=== PATIENT | female | born 1995 | race Caucasian/White ===

== ENCOUNTER 2017-03-02 12:57 | Emergency (ER) | payer BC, MEDICAID ==
--- NOTE | 2017-03-02 13:47 | EDM.PDOC ---
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 She states that she saw Dr. Alvarenga about 2 weeks ago, and that an ultrasound was performed, demonstrating a left ovarian cyst. The patient now presents because the pain has gotten worse over the past 2 days. The pain is made better with application of heat. No recent fever, nausea, vomiting, constipation, or diarrhea. She denies dysuria and urinary urgency, but acknowledges urinary frequency. She states that she has been feeling shaky and cold. She denies trying any home treatments or remedies. She is Ab1. LMP was 02/23/2017 x 5 days, normal. Bilateral Lower Anterior Abdominal Pain Score (Numeric/FACES): 8 - Related Data Allergies Allergy/AdvReac Type Severity Reaction Status Date / Time No Known Allergies Allergy Verified 03/02/17 13:06 Home Meds: Home Meds Norgestimate-Ethinyl Estradiol [Trinessa Lo Tablet] 1 tab PO DAILY 03/02/17 [ History] Past Medical History - Past Surgical History Female Surgical History: Reports: Breast Implant (bilateral), Section (x 1) Social & Family History - Tobacco Use Smoking Status *Q: Never Smoker Second Hand Smoke Exposure: No - Caffeine Use Caffeine Use: Reports: Soda - Alcohol Use Alcohol Use History: Yes Alcohol Use Frequency: Rarely - Recreational Drug Use Recreational Drug Use: No - Living Situation & Occupation Living situation: Reports: (getting ), with Family (1 child) 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 Denies: Dysuria, Urgency Musculoskeletal: Reports: No Symptoms Skin: Reports: No Symptoms Neurological: Reports: No Symptoms Psychiatric: Reports: No Symptoms Hematologic/Lymphatic: Reports: No Symptoms Immunologic: Reports: No Symptoms ED EXAM, GENERAL - Physical Exam Exam: See Below Exam Limited By: No Limitations General Appearance: Alert, WD/WN, No Apparent Distress Ears: Normal External Exam, Hearing Grossly Normal Nose: Normal Inspection, No Blood Throat/Mouth: Normal Inspection, Normal Lips, Normal Voice, No Airway Compromise Head: Atraumatic, Normocephalic Neck: Normal Inspection, Full Range of Motion Respiratory/Chest: No Respiratory Distress, Lungs Clear, Normal Breath Sounds, No Accessory Muscle Use Cardiovascular: Normal Peripheral Pulses, Regular Rate, Rhythm, No Gallop, No JVD, No Murmur, No Rub Peripheral Pulses: 4+: Radial (L), Radial (R) GI/Abdominal: Normal Bowel Sounds, Soft, No Organomegaly, No Distention, No Abnormal Bruit, No Mass, Tender (Suprapubic and bilateral anterior pelvis only. Nontender elsewhere.) (Female) Exam: Deferred Rectal (Female) Exam: Deferred Back Exam: Normal Inspection, Full Range of Motion. No: CVA Tenderness (L), CVA Tenderness (R) Extremities: Normal Inspection, Normal Range of Motion, No Pedal Edema, Normal Capillary Refill Neurological: Alert, Oriented, Normal Cognition, No Motor/Sensory Deficits Psychiatric: Normal Affect Skin Exam: Warm, Dry, Intact, Normal Color, No Rash Course - Vital Signs Last Recorded V/S: Last Vital Signs Temp 36.3 C 03/02/17 13:06 Pulse 69 03/02/17 13:06 Resp 16 03/02/17 13:06 BP 116/78 03/02/17 13:06 Pulse Ox 100 03/02/17 13:06 - Orders/Labs/Meds Labs: Laboratory Tests 03/02/17 03/02/17 03/02/17 Range/Units 13:55 13:55 13:55 WBC 5.47 (3.98-10.04) K/mm3 RBC 4.70 (3.98-5.22) M/mm3 Hgb 13.2 (11.2-15.7) gm/L Hct 40.8 (34.1-44.9) % MCV 86.8 (79.4-94.8) fl MCH 28.1 (25.6-32.2) pg MCHC 32.4 (32.2-35.5) g/dl RDW Std Deviation 41.3 (36.4-46.3) fL Plt Count 290 (182-369) K/mm3 MPV 10.1 (9.4-12.3) fl Neutrophils % (Manual) 50 (40-60) % Band Neutrophils % 0 (0-10) % Lymphocytes % (Manual) 44 H (20-40) % Atypical Lymphs % 0 % Monocytes % (Manual) 5 (2-10) % Eosinophils % (Manual) 1 (0.7-5.8) % Basophils % (Manual) 0 L (0.1-1.2) Platelet Estimate Adequate RBC Morph Comment Normal Sodium (136-145) mEq/L Potassium (3.5-5.1) mEq/L Chloride (98-107) mEq/L Carbon Dioxide (21-32) mEq/L Anion Gap (5-15) BUN (7-18) mg/dL Creatinine (0.55-1.02) mg/dL Est Cr Clr Drug Dosing mL/min Estimated GFR (MDRD) (>60) mL/min BUN/Creatinine Ratio (14-18) Glucose (74-106) mg/dL Calcium (8.5-10.1) mg/dL Total Bilirubin (0.2-1.0) mg/dL AST (15-37) U/L ALT (14-59) U/L Alkaline Phosphatase (46-116) U/L Total Protein (6.4-8.2) g/dl Albumin (3.4-5.0) g/dl Globulin gm/dL Albumin/Globulin Ratio (1-2) Urine Color Yellow (Yellow) Urine Appearance Clear (Clear) Urine pH 5.5 (5.0-8.0) Ur Specific [place] 1.025 (1.005-1.030) Urine Protein Negative (Negative) Urine Glucose (UA) Negative (Negative) Urine Ketones Negative (Negative) Urine Occult Blood Negative (Negative) Urine Nitrite Negative (Negative) Urine Bilirubin Negative (Negative) Urine Urobilinogen 0.2 (0.2-1.0) Ur Leukocyte Esterase Negative (Negative) Urine RBC Not seen (0-5) /hpf Urine WBC 0-5 (0-5) /hpf Ur Epithelial Cells 5-10 H (0-5) /hpf Urine Bacteria Few (FEW) /hpf Urine Mucus Many H (FEW) /hpf Urine HCG, Qual Negative (NEGATIVE) 03/02/17 Range/Units 14:05 WBC (3.98-10.04) K/mm3 RBC (3.98-5.22) M/mm3 Hgb (11.2-15.7) gm/L Hct (34.1-44.9) % MCV (79.4-94.8) fl MCH (25.6-32.2) pg MCHC (32.2-35.5) g/dl RDW Std Deviation (36.4-46.3) fL Plt Count (182-369) K/mm3 MPV (9.4-12.3) fl Neutrophils % (Manual) (40-60) % Band Neutrophils % (0-10) % Lymphocytes % (Manual) (20-40) % Atypical Lymphs % % Monocytes % (Manual) (2-10) % Eosinophils % (Manual) (0.7-5.8) % Basophils % (Manual) (0.1-1.2) Platelet Estimate RBC Morph Comment Sodium 141 (136-145) mEq/L Potassium 4.1 (3.5-5.1) mEq/L Chloride 107 (98-107) mEq/L Carbon Dioxide 26 (21-32) mEq/L Anion Gap 12.1 (5-15) BUN 13 (7-18) mg/dL Creatinine 0.9 (0.55-1.02) mg/dL Est Cr Clr Drug Dosing 106.20 mL/min Estimated GFR (MDRD) > 60 (>60) mL/min BUN/Creatinine Ratio 14.4 (14-18) Glucose 94 (74-106) mg/dL Calcium 9.1 (8.5-10.1) mg/dL Total Bilirubin 0.3 (0.2-1.0) mg/dL AST 77 H (15-37) U/L ALT 51 (14-59) U/L Alkaline Phosphatase 53 (46-116) U/L Total Protein 7.4 (6.4-8.2) g/dl Albumin 3.7 (3.4-5.0) g/dl Globulin 3.7 gm/dL Albumin/Globulin Ratio 1.0 (1-2) Urine Color (Yellow) Urine Appearance (Clear) Urine pH (5.0-8.0) Ur Specific [place] (1.005-1.030) Urine Protein (Negative) Urine Glucose (UA) (Negative) Urine Ketones (Negative) Urine Occult Blood (Negative) Urine Nitrite (Negative) Urine Bilirubin (Negative) Urine Urobilinogen (0.2-1.0) Ur Leukocyte Esterase (Negative) Urine RBC (0-5) /hpf Urine WBC (0-5) /hpf Ur Epithelial Cells (0-5) /hpf Urine Bacteria (FEW) /hpf Urine Mucus (FEW) /hpf Urine HCG, Qual (NEGATIVE) - Re-Assessments/Exams Free Text/Narrative Re-Assessment/Exam: 03/02/17 15:00 The patient's urinalysis is consistent with an examination, not a UTI. 03/02/17 16:10 Transvaginal ultrasound is read by Dr. Robins as: 1. Normal pelvic ultrasound exam. 03/02/17 16:15 Test results discussed with the patient. Today's workup is entirely normal, and does not explain the cause of the patient's pain. The ultrasound does not find that she has an ovarian cyst, nor any blood in the pelvis. I am recommending that she take fwiz-qkx-dvxydki Tylenol or ibuprofen as needed for discomfort, and I will refer her to Dr. Cavazos for follow-up. Departure - Departure Time of Disposition: 16:16 Disposition: Home, Self-Care 01 Condition: Good Clinical Impression: Pelvic pain - Discharge Information Referrals: PCP,None [Primary Care Provider] - Darion Cavazos MD [Physician] - Forms: ED Department Discharge Additional Instructions: You were seen in the emergency room for worsening pelvic pain over the past month. Workup in the ER included a CBC, CMP, urinalysis, urine test, and a transvaginal ultrasound. Your entire workup was unremarkable, and does not explain the cause of your pain. We recommend that you take kgfw-vkm-ieoqkva Tylenol or ibuprofen as needed for discomfort. Follow-up with the Arabic Linguist Dr. Cavazos for further evaluation. If any other problems, please do not hesitate to return to the ER.
--- NOTE | 2017-03-02 16:07 | US ---
Pelvic ultrasound: Multiple real-time images were obtained transvaginally. Comparison: No previous pelvic ultrasound. Findings: Uterus is anteverted. No myometrial abnormality is identified. Normal endometrial thickness of 4.5 mm. Normal follicles are seen within the ovaries. No larger cyst or solid abnormality is seen. No free fluid is seen. Measurements: Uterus: Length 7.6 cm, AP height 2.7 cm, transverse width 5.3 cm Right ovary: 3.5 x 2.2 x 2.5 cm Left ovary: 2.9 x 1.8 x 2.1 cm Impression: 1. Normal pelvic ultrasound exam. Diagnostic code #1
== END 2017-03-02 16:35 | disposition home or self-care (01) ==
LOC: JD.ED 12:57
DX: R10.2 Pelvic and perineal pain (principal); Z79.899 Other long term (current) drug therapy
CPT/HCPCS: 36415; 76830; 76830-26; 80053; 81001; 81025; 85025; 99283; 99284-25

== ENCOUNTER 2018-09-07 11:42 | Inpatient (IN) | payer MEDICAID ==
[2018-09-07] MEDS ORDERED: Nalbuphine 20 MG/ML 1 ML Syringe IVPUSH PRN (11:55)
[2018-09-07] MEDS ORDERED: Sodium Chloride 0.9% 10 ML Syringe FLUSH PRN (11:55)
[2018-09-07] MEDS ORDERED: Ondansetron 4 MG/2 ML SDV IVPUSH PRN (11:55)
[2018-09-07] MEDS ORDERED: Oxytocin/Lactated Ringers 10 UNIT/1,000 ML BAG IV SCH (12:00)
[2018-09-07] MEDS ORDERED: Penicillin G Potassium 5 MILLUNITS in Sodium Chloride 0.9% 100 ML IV SCH (12:30)
[2018-09-07] MEDS: Oxytocin/Lactated Ringers 10 UNIT/1,000 ML BAG IV SCH (12:35)
[2018-09-07] MEDS: Lactated Ringers 1,000 ML IV SCH ×2 (12:44→16:25)
[2018-09-07] MEDS ORDERED: fentaNYL/Bupivacaine-NS 2 MCG/ML-0.125%/PF 100 ML Bag EPIDUR PRN (13:04)
[2018-09-07] MEDS ORDERED: ePHEDrine 50 MG/ML SDV IVPUSH PRN (13:04)
[2018-09-07] MEDS ORDERED: diphenhydrAMINE 50 MG/ML SDV IVPUSH PRN (13:04)
[2018-09-07] MEDS ORDERED: fentaNYL 100 MCG/2 ML SDV EPIDUR PRN (13:04)
--- NOTE | 2018-09-07 13:10 | PCM.PREANE ---
Preanesthetic Assessment - Procedure Proposed Procedure: lyle - Anesthesia/Transfusion/Family Hx Anesthesia History: Prior Anesthesia Without Reaction Family History of Anesthesia Reaction: No Transfusion History: No Prior Transfusion(s) - Review of Systems General: No Symptoms Pulmonary: No Symptoms Cardiovascular: No Symptoms Gastrointestinal: No Symptoms Neurological: No Symptoms Other: Reports: None - Physical Assessment Pulse: 85 O2 Sat by Pulse Oximetry: 99 Respiratory Rate: 20 Blood Pressure: 128/87 Height: 6 ft Weight: 87.634 kg ASA Class: 2 Mental Status: Alert & Oriented x3 Airway Class: Mallampati = 1 Dentition: Reports: Normal Dentition Thyro-Mental Finger Breadths: 3 Mouth Opening Finger Breadths: 3 ROM/Head Extension: Full Lungs: Clear to Auscultation, Normal Respiratory Effort Cardiovascular: Regular Rate, Regular Rhythm - Lab Values: Laboratory Last Values WBC 10.45 K/mm3 (3.98-10.04) H 09/07/18 12:32 RBC 4.44 M/mm3 (3.98-5.22) 09/07/18 12:32 Hgb 12.3 gm/L (11.2-15.7) 09/07/18 12:32 Hct 37.7 % (34.1-44.9) 09/07/18 12:32 MCV 84.9 fl (79.4-94.8) D 09/07/18 12:32 MCH 27.7 pg (25.6-32.2) 09/07/18 12:32 MCHC 32.6 g/dl (32.2-35.5) 09/07/18 12:32 RDW Std Deviation 43.1 fL (36.4-46.3) 09/07/18 12:32 Plt Count 124 K/mm3 (182-369) L D 09/07/18 12:32 MPV 12.9 fl (9.4-12.3) H 09/07/18 12:32 Neut % (Auto) 70.9 % (34.0-71.1) 09/07/18 12:32 Lymph % (Auto) 19.3 % (19.3-51.7) 09/07/18 12:32 [place] % (Auto) 8.5 % (4.7-12.5) 09/07/18 12:32 Eos % (Auto) 0.8 (0.7-5.8) 09/07/18 12:32 Baso % (Auto) 0.2 % (0.1-1.2) 09/07/18 12:32 Neut # (Auto) 7.41 K/mm3 (1.56-6.13) H 09/07/18 12:32 Lymph # (Auto) 2.02 K/mm3 (1.18-3.74) 09/07/18 12:32 [place] # (Auto) 0.89 K/mm3 (0.24-0.36) H 09/07/18 12:32 Eos # (Auto) 0.08 K/mm3 (0.04-0.36) 09/07/18 12:32 Baso # (Auto) 0.02 K/mm3 (0.01-0.08) 09/07/18 12:32 - Allergies Allergies/Adverse Reactions: Allergies Allergy/AdvReac Type Severity Reaction Status Date / Time No Known Allergies Allergy Verified 09/07/18 12:03 - Blood Blood Available: No - Acknowledgements Anesthesia Type Planned: Epidural Pt an Appropriate Candidate for the Planned Anesthesia: Yes Alternatives and Risks of Anesthesia Discussed w Pt/Guardian: Yes Pt/Guardian Understands and Agrees with Anesthesia Plan: Yes PreAnesthesia Questionnaire HEENT History: Reports: None Cardiovascular History: Reports: None Respiratory History: Reports: None Gastrointestinal History: Reports: GERD (with preg) : 2 (40 1) Para: 1 Musculoskeletal History: Reports: None Psychiatric History: Reports: None Oncologic (Cancer) History: Reports: None - Past Surgical History Female Surgical History: Reports: Breast Implant (bilateral), Section (x 1) - History Comment History Comment: vits for home meds - SUBSTANCE USE Smoking Status *Q: Never Smoker Tobacco Use Within Last Twelve Months: No Second Hand Smoke Exposure: No Days Per Week of Alcohol Use: 0 Recreational Drug Use History: No - HOME MEDS Home Medications: Home Meds Norgestimate-Ethinyl Estradiol [Trinessa Lo Tablet] 1 tab PO DAILY 03/02/17 [ History] - CURRENT (IN HOUSE) MEDS Current Meds: Current Medications Lactated Ringer's (Ringers, Lactated) 1,000 mls @ 100 mls/hr IV ASDIRECTED RANJIT Last Admin: 09/07/18 12:44 Dose: 100 mls/hr Oxytocin/Lactated Ringer's (Pitocin In Lr 10 Units/1,000 Ml) 10 unit in 1,000 mls @ 500 mls/hr IV .CONTINUOUS RANJIT Penicillin G Potassium 5 (millunits/ Sodium Chloride) 100 mls @ 100 mls/hr IV ONETIME RANJIT Stop: 09/07/18 14:30 Last Admin: 09/07/18 12:44 Dose: 100 mls/hr Penicillin G Potassium 2.5 (millunits/ Sodium Chloride) 100 mls @ 200 mls/hr IV Q4H RANJIT Oxytocin/Lactated Ringer's (Pitocin In Lr 10 Units/1,000 Ml) 10 unit in 1,000 mls @ 12 mls/hr IV TITRATE RANJIT; Protocol Last Admin: 09/07/18 12:35 Dose: 2 munits/min, 12 mls/hr Lidocaine HCl (Xylocaine 1%) 50 ml INJECT ASDIRECTED ONE Stop: 09/07/18 18:01 Nalbuphine HCl (Nubain) 10 mg IVPUSH Q2H PRN PRN Reason: pain Ondansetron HCl (Zofran) 4 mg IVPUSH Q4H PRN PRN Reason: Nausea/Vomiting Sodium Chloride (Saline Flush) 10 ml FLUSH ASDIRECTED PRN PRN Reason: Keep Vein Open
--- NOTE | 2018-09-07 13:41 | PCM.LDHP ---
L&D History of Present Illness - General Date of Service: 09/07/18 Admit Problem/Dx: Patient Status Order with Admit Dx/Problem 09/07/18 11:56 Patient Status [ADT] Routine Admission Diagnosis/Problem Admission Diagnosis/Problem Source of Information: Patient History Limitations: Reports: No Limitations - History of Present Illness Introduction:: Patient is a 23 y/o at 40 1/7 wks who presents for elective IOL. Patient's last notable for suspected IUGR and IOL at 37 weeks. Required for concerns of NRFS. Has been doing well this with appropriate growth noted. Has been requesting IOL due to concerns for delaying further and potentially failing to achieve . She is otherwise doing well today. Notes good FM. 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: : 2 Para: 1 LMP (Approximate): - Past Surgical History Female Surgical History: Reports: Breast Implant (bilateral), Section Social & Family History - Tobacco Use Smoking Status *Q: Never Smoker Second Hand Smoke Exposure: No - Caffeine Use Caffeine Use: Reports: Soda - Alcohol Use Alcohol Use History: No Days Per Week of Alcohol Use: 0 - Recreational Drug Use Recreational Drug Use: No - Living Situation & Occupation Living situation: Reports: (getting ), with Family (1 child) 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) H&P Review of Systems - Review of Systems: Review Of Systems: See Below General: Reports: No Symptoms Pulmonary: Reports: No Symptoms Cardiovascular: Reports: No Symptoms Gastrointestinal: Reports: No Symptoms Genitourinary: Reports: No Symptoms Musculoskeletal: Reports: No Symptoms Psychiatric: Reports: No Symptoms L&D Exam - Exam Exam: See Below - Vital Signs Vital Signs: Last Vital Signs Temp 36.6 C 09/07/18 12:10 Pulse 85 09/07/18 13:10 Resp 20 09/07/18 13:10 BP 128/87 09/07/18 13:10 Pulse Ox 99 09/07/18 13:10 Weight: 87.634 kg - OB Specific Contraction Intensity: Irritability Movement: Active Heart Tones: Present Heart Tones per Min: 140 Heart Rate (FHR) Variability: Moderate (6-25 bmp) Presentation: Vertex - Cruz Score Cruz Score Cervix Position: Posterior Cruz Score Consistency: Medium Cruz Score Effacement: 31-50% Cruz Score Dilation: 1-2 cm Cruz Score 's Station: -1 ,0 Cruz Score Total: 5 - Exam General: Alert, Oriented, Cooperative Lungs: Clear to Auscultation, Normal Respiratory Effort Cardiovascular: Regular Rate, Regular Rhythm GI/Abdominal Exam: Soft, Non-Tender Genitourinary: Normal external exam Extremities: Normal Inspection Skin: Warm, Dry, Intact - Patient Data Lab Results Last 24 hrs: Laboratory Results - last 24 hr 09/07/18 09/07/18 Range/Units 12:32 12:32 WBC 10.45 H (3.98-10.04) K/mm3 RBC 4.44 (3.98-5.22) M/mm3 Hgb 12.3 (11.2-15.7) gm/L Hct 37.7 (34.1-44.9) % MCV 84.9 D (79.4-94.8) fl MCH 27.7 (25.6-32.2) pg MCHC 32.6 (32.2-35.5) g/dl RDW Std Deviation 43.1 (36.4-46.3) fL Plt Count 124 L D (182-369) K/mm3 MPV 12.9 H (9.4-12.3) fl Neut % (Auto) 70.9 (34.0-71.1) % Lymph % (Auto) 19.3 (19.3-51.7) % [place] % (Auto) 8.5 (4.7-12.5) % Eos % (Auto) 0.8 (0.7-5.8) Baso % (Auto) 0.2 (0.1-1.2) % Neut # (Auto) 7.41 H (1.56-6.13) K/mm3 Lymph # (Auto) 2.02 (1.18-3.74) K/mm3 [place] # (Auto) 0.89 H (0.24-0.36) K/mm3 Eos # (Auto) 0.08 (0.04-0.36) K/mm3 Baso # (Auto) 0.02 (0.01-0.08) K/mm3 Blood Type O POSITIVE Gel Antibody Screen Negative Result Diagrams: 09/07/18 12:32 - Problem List (1) Postmaturity , 40-42 weeks gestation SNOMED Code(s): 63012547, 364918409 ICD Code: O48.0 - POST-TERM Status: Acute Current Visit: Yes (2) GBS carrier SNOMED Code(s): 4175701944720 ICD Code: Z22.330 - CARRIER OF GROUP B STREPTOCOCCUS Status: Acute Current Visit: Yes (3) History of SNOMED Code(s): 806471477 ICD Code: Z98.891 - HISTORY OF UTERINE SCAR FROM PREVIOUS SURGERY Status: Acute Current Visit: Yes Problem List Initiated/Reviewed/Updated: Yes Orders Last 24hrs: Active Orders 24 hr Category Date Time Status Patient Status [ADT] Routine ADT 09/07/18 11:56 Active Activity as Tolerated [RC] PFP Care 09/07/18 11:56 Active Communication Order [RC] ASDIRECTED Care 09/07/18 11:56 Active Heart Tones [RC] ASDIRECTED Care 09/07/18 11:57 Active Non Stress Test [RC] PER UNIT ROUTINE Care 09/07/18 11:56 Active Notify Provider [RC] ASDIRECTED Care 09/07/18 13:04 Active Notify Provider [RC] PFP Care 09/07/18 11:56 Active Notify Provider [RC] PRN Care 09/07/18 11:56 Active Peripheral IV Care [RC] . DIRECTED Care 09/07/18 11:57 Active Vital Signs [RC] PER UNIT ROUTINE Care 09/07/18 11:56 Active Regular Diet [DIET] Diet 09/07/18 Lunch Active RAPID PLASMA REAGIN,RPR [CHEM] Routine Lab 09/07/18 12:32 Received Lactated Ringers [Ringers, Lactated] 1,000 ml Med 09/07/18 12:00 Active IV ASDIRECTED Lidocaine 1% [Xylocaine 1%] Med 09/07/18 18:00 Once 50 ml INJECT ASDIRECTED ONE Nalbuphine [Nubain] Med 09/07/18 11:55 Active 10 mg IVPUSH Q2H PRN Ondansetron [Zofran] Med 09/07/18 11:55 Active 4 mg IVPUSH Q4H PRN Oxytocin/Lactated Ringers [Pitocin in LR 10 Units/1,000 Med 09/07/18 12:00 Active ML] 10 unit in 1,000 ml IV .CONTINUOUS Oxytocin/Lactated Ringers [Pitocin in LR 10 Units/1,000 Med 09/07/18 12:15 Active ML] 10 unit in 1,000 ml IV TITRATE Penicillin G Potassium [Pfizerpen] 2.5 millunits Med 09/07/18 16:30 Active Sodium Chloride 0.9% [Normal Saline] 100 ml IV Q4H Penicillin G Potassium [Pfizerpen] 5 millunits Med 09/07/18 12:30 Active Sodium Chloride 0.9% [Normal Saline] 100 ml IV ONETIME Sodium Chloride 0.9% [Saline Flush] Med 09/07/18 11:55 Active 10 ml FLUSH ASDIRECTED PRN diphenhydrAMINE [Benadryl] Med 09/07/18 13:04 Active 25 mg IVPUSH Q6H PRN ePHEDrine [ePHEDrine sulfate] Med 09/07/18 13:04 Active 5 mg IVPUSH ASDIRECTED PRN fentaNYL [Sublimaze] Med 09/07/18 13:04 Active 100 mcg EPIDUR Q3H PRN fentaNYL/Bupivacaine/NS/PF [dpwnxFBR-Rghux-QT 2 MCG/ML- Med 09/07/18 13:04 Active 0.125%] 100 ml EPIDUR ONETIME PRN Electronic Heart Tones Ext w TOCO [WOMSER] Oth 09/07/18 11:56 Ordered Routine Electronic Heart Tones Internal [WOMSER] Per Unit Oth 09/07/18 11:56 Ordered Routine Peripheral IV Insertion Adult [OM.PC] Routine Oth 09/07/18 11:56 Ordered Resuscitation Status Routine Resus Stat 09/07/18 11:55 Ordered Medication Orders Diphenhydramine HCl (Benadryl) 25 mg IVPUSH Q6H PRN PRN Reason: pruritis Ephedrine Sulfate (Ephedrine Sulfate) 5 mg IVPUSH ASDIRECTED PRN PRN Reason: Hypotension Fentanyl (Sublimaze) 100 mcg EPIDUR Q3H PRN PRN Reason: Pain Fentanyl/Bupivacaine HCl (Wxqgzkko-Znfgj-Cp 2 Mcg/Ml-0.125%) 100 ml EPIDUR ONETIME PRN PRN Reason: Pain Lactated Ringer's (Ringers, Lactated) 1,000 mls @ 100 mls/hr IV ASDIRECTED RANJIT Last Admin: 09/07/18 12:44 Dose: 100 mls/hr Oxytocin/Lactated Ringer's (Pitocin In Lr 10 Units/1,000 Ml) 10 unit in 1,000 mls @ 500 mls/hr IV .CONTINUOUS RANJIT Penicillin G Potassium 5 (millunits/ Sodium Chloride) 100 mls @ 100 mls/hr IV ONETIME RANJIT Stop: 09/07/18 14:30 Last Admin: 09/07/18 12:44 Dose: 100 mls/hr Penicillin G Potassium 2.5 (millunits/ Sodium Chloride) 100 mls @ 200 mls/hr IV Q4H RANJIT Oxytocin/Lactated Ringer's (Pitocin In Lr 10 Units/1,000 Ml) 10 unit in 1,000 mls @ 12 mls/hr IV TITRATE RANJIT; Protocol Last Admin: 09/07/18 12:35 Dose: 2 munits/min, 12 mls/hr Lidocaine HCl (Xylocaine 1%) 50 ml INJECT ASDIRECTED ONE Stop: 09/07/18 18:01 Nalbuphine HCl (Nubain) 10 mg IVPUSH Q2H PRN PRN Reason: pain Ondansetron HCl (Zofran) 4 mg IVPUSH Q4H PRN PRN Reason: Nausea/Vomiting Sodium Chloride (Saline Flush) 10 ml FLUSH ASDIRECTED PRN PRN Reason: Keep Vein Open Assessment/Plan Comment:: 23 y/o at 40 1/7 wks who presents for IOL * Have previously reviewed and reviewed again today risks with TOLAC. Did review not preference for IOL with TOLAC, but that can technically be done. She does desire to proceed. Consent signed. * Labs done * GBS positive, PCN to be started * [place] bulb and pitocin to be started. Will AROM when able * Pain management per patient preference
[2018-09-07] MEDS: Penicillin G Potassium 2.5 MILLUNITS in Sodium Chloride 0.9% 100 ML IV SCH ×2 (16:25→20:39)
[2018-09-07] MEDS ORDERED: Lidocaine 1% 50 ML MDV INJECT ONE (18:00)
--- NOTE | 2018-09-07 19:51 | PCM.PNLD ---
Labor Progress Note - VS & Meds Vital Signs: Last Vital Signs Temp 36.6 C 09/07/18 12:10 Pulse 85 09/07/18 13:10 Resp 20 09/07/18 13:10 BP 128/87 09/07/18 13:10 Pulse Ox 99 09/07/18 13:10 Active Medications: Current Medications Diphenhydramine HCl (Benadryl) 25 mg IVPUSH Q6H PRN PRN Reason: pruritis Ephedrine Sulfate (Ephedrine Sulfate) 5 mg IVPUSH ASDIRECTED PRN PRN Reason: Hypotension Fentanyl (Sublimaze) 100 mcg EPIDUR Q3H PRN PRN Reason: Pain Fentanyl/Bupivacaine HCl (Lltzljlm-[place]-Ht 2 Mcg/Ml-0.125%) 100 ml EPIDUR ONETIME PRN PRN Reason: Pain Lactated Ringer's (Ringers, Lactated) 1,000 mls @ 100 mls/hr IV ASDIRECTED RANJIT Last Admin: 09/07/18 16:25 Dose: 100 mls/hr Oxytocin/Lactated Ringer's (Pitocin In Lr 10 Units/1,000 Ml) 10 unit in 1,000 mls @ 500 mls/hr IV .CONTINUOUS RANJIT Penicillin G Potassium 2.5 (millunits/ Sodium Chloride) 100 mls @ 200 mls/hr IV Q4H RANJIT Last Admin: 09/07/18 16:25 Dose: 200 mls/hr Oxytocin/Lactated Ringer's (Pitocin In Lr 10 Units/1,000 Ml) 10 unit in 1,000 mls @ 12 mls/hr IV TITRATE RANJIT; Protocol Last Titration: 09/07/18 19:26 Dose: 14 munits/min, 84 mls/hr Nalbuphine HCl (Nubain) 10 mg IVPUSH Q2H PRN PRN Reason: pain Ondansetron HCl (Zofran) 4 mg IVPUSH Q4H PRN PRN Reason: Nausea/Vomiting Sodium Chloride (Saline Flush) 10 ml FLUSH ASDIRECTED PRN PRN Reason: Keep Vein Open Discontinued Medications Penicillin G Potassium 5 (millunits/ Sodium Chloride) 100 mls @ 100 mls/hr IV ONETIME RANJIT Stop: 09/07/18 14:30 Last Admin: 09/07/18 12:44 Dose: 100 mls/hr Lidocaine HCl (Xylocaine 1%) 50 ml INJECT ASDIRECTED ONE Stop: 09/07/18 18:01 - Uterine Contractions Uterine Monitoring Mode: External [place] Contraction Intensity: Moderate - Monitoring Monitor Mode: External Ultrasound Heart Rate (FHR) Baseline: 140 Heart Rate (FHR) Variability: Moderate (6-25 bmp) Accelerations: Present, 15x15 Decelerations: Late (Two isolated late decelerations ) Strip Review: Category II - Vaginal Exam Dilation (cm): 2 - Labor Progress (Free Text) Labor Progress: Doing well. Pitocin at 14. Rates contractions as moderate. Can feel silverio bulb almost though cervix. Will continue to monitor and increase pitocin as able. Will attempt AROM when out.
[2018-09-07] MEDS ORDERED: Bupivacaine 0.25% 10 ML SDV ONE (22:00)
[2018-09-08] MEDS: Penicillin G Potassium 2.5 MILLUNITS in Sodium Chloride 0.9% 100 ML IV SCH ×3 (00:22→08:37)
--- NOTE | 2018-09-08 00:25 | PCM.PNLD ---
Labor Progress Note - VS & Meds Vital Signs: Last Vital Signs Temp 36.6 C 09/07/18 12:10 Pulse 85 09/07/18 13:10 Resp 20 09/07/18 13:10 BP 128/87 09/07/18 13:10 Pulse Ox 99 09/07/18 13:10 Active Medications: Current Medications Diphenhydramine HCl (Benadryl) 25 mg IVPUSH Q6H PRN PRN Reason: pruritis Ephedrine Sulfate (Ephedrine Sulfate) 5 mg IVPUSH ASDIRECTED PRN PRN Reason: Hypotension Fentanyl (Sublimaze) 100 mcg EPIDUR Q3H PRN PRN Reason: Pain Fentanyl/Bupivacaine HCl (Bdapsied-Efxoq-Wl 2 Mcg/Ml-0.125%) 100 ml EPIDUR ONETIME PRN PRN Reason: Pain Lactated Ringer's (Ringers, Lactated) 1,000 mls @ 100 mls/hr IV ASDIRECTED RANJIT Last Admin: 09/07/18 16:25 Dose: 100 mls/hr Oxytocin/Lactated Ringer's (Pitocin In Lr 10 Units/1,000 Ml) 10 unit in 1,000 mls @ 500 mls/hr IV .CONTINUOUS RANJIT Penicillin G Potassium 2.5 (millunits/ Sodium Chloride) 100 mls @ 200 mls/hr IV Q4H RANJIT Last Admin: 09/08/18 00:22 Dose: 200 mls/hr Oxytocin/Lactated Ringer's (Pitocin In Lr 10 Units/1,000 Ml) 10 unit in 1,000 mls @ 12 mls/hr IV TITRATE RANJIT; Protocol Last Titration: 09/07/18 23:59 Dose: 17 munits/min, 102 mls/hr Nalbuphine HCl (Nubain) 10 mg IVPUSH Q2H PRN PRN Reason: pain Ondansetron HCl (Zofran) 4 mg IVPUSH Q4H PRN PRN Reason: Nausea/Vomiting Sodium Chloride (Saline Flush) 10 ml FLUSH ASDIRECTED PRN PRN Reason: Keep Vein Open Discontinued Medications Penicillin G Potassium 5 (millunits/ Sodium Chloride) 100 mls @ 100 mls/hr IV ONETIME RANJIT Stop: 09/07/18 14:30 Last Admin: 09/07/18 12:44 Dose: 100 mls/hr Lidocaine HCl (Xylocaine 1%) 50 ml INJECT ASDIRECTED ONE Stop: 09/07/18 18:01 - Uterine Contractions Uterine Monitoring Mode: External [place] Contraction Intensity: Moderate - Monitoring Monitor Mode: External Ultrasound Heart Rate (FHR) Baseline: 150 Heart Rate (FHR) Variability: Moderate (6-25 bmp) Accelerations: Present, 15x15 Decelerations: None Strip Review: Category I - Vaginal Exam Dilation (cm): 3 Effacement (Percent): 75 Station: -2 Cervical Position: Midposition - Labor Progress (Free Text) Labor Progress: Doing well on 17 of pitocin. Kessler bulb removed. AROM attempted, but only scant amount of fluid able to be released. Continue present management
[2018-09-08] MEDS: Lactated Ringers 1,000 ML IV SCH ×3 (01:57→04:49)
[2018-09-08] MEDS: Oxytocin/Lactated Ringers 10 UNIT/1,000 ML BAG IV SCH (03:24)
--- NOTE | 2018-09-08 07:23 | PCM.PNLD ---
Labor Progress Note - VS & Meds Vital Signs: Last Vital Signs Temp 36.6 C 09/07/18 12:10 Pulse 85 09/07/18 13:10 Resp 20 09/07/18 13:10 BP 128/87 09/07/18 13:10 Pulse Ox 99 09/07/18 13:10 Active Medications: Current Medications Diphenhydramine HCl (Benadryl) 25 mg IVPUSH Q6H PRN PRN Reason: pruritis Ephedrine Sulfate (Ephedrine Sulfate) 5 mg IVPUSH ASDIRECTED PRN PRN Reason: Hypotension Fentanyl (Sublimaze) 100 mcg EPIDUR Q3H PRN PRN Reason: Pain Last Admin: 09/08/18 04:42 Dose: 100 mcg Fentanyl/Bupivacaine HCl (Arpvcvrs-Ncgwy-Gf 2 Mcg/Ml-0.125%) 100 ml EPIDUR ONETIME PRN PRN Reason: Pain Last Admin: 09/08/18 04:42 Dose: 100 ml Lactated Ringer's (Ringers, Lactated) 1,000 mls @ 100 mls/hr IV ASDIRECTED RANJIT Last Admin: 09/08/18 04:49 Dose: 100 mls/hr Oxytocin/Lactated Ringer's (Pitocin In Lr 10 Units/1,000 Ml) 10 unit in 1,000 mls @ 500 mls/hr IV .CONTINUOUS RANJIT Penicillin G Potassium 2.5 (millunits/ Sodium Chloride) 100 mls @ 200 mls/hr IV Q4H RANJIT Last Admin: 09/08/18 04:27 Dose: 200 mls/hr Oxytocin/Lactated Ringer's (Pitocin In Lr 10 Units/1,000 Ml) 10 unit in 1,000 mls @ 12 mls/hr IV TITRATE RANJIT; Protocol Last Titration: 09/08/18 04:01 Dose: 12 munits/min, 72 mls/hr Nalbuphine HCl (Nubain) 10 mg IVPUSH Q2H PRN PRN Reason: pain Last Admin: 09/08/18 03:27 Dose: 10 mg Ondansetron HCl (Zofran) 4 mg IVPUSH Q4H PRN PRN Reason: Nausea/Vomiting Sodium Chloride (Saline Flush) 10 ml FLUSH ASDIRECTED PRN PRN Reason: Keep Vein Open Discontinued Medications Penicillin G Potassium 5 (millunits/ Sodium Chloride) 100 mls @ 100 mls/hr IV ONETIME RANJIT Stop: 09/07/18 14:30 Last Admin: 09/07/18 12:44 Dose: 100 mls/hr Lidocaine HCl (Xylocaine 1%) 50 ml INJECT ASDIRECTED ONE Stop: 09/07/18 18:01 - Uterine Contractions Uterine Monitoring Mode: External [place] Contraction Intensity: Moderate to Strong - Monitoring Monitor Mode: External Ultrasound Heart Rate (FHR) Baseline: 135 Heart Rate (FHR) Variability: Moderate (6-25 bmp) Accelerations: Present, 15x15 Decelerations: None Strip Review: Category I - Vaginal Exam Dilation (cm): 4-5 Effacement (Percent): 90 Station: 0 Cervical Position: Anterior - Labor Progress (Free Text) Labor Progress: Doing well. Received an epidural about 0500. pitocin has been up and down overnight. Currently at 10. IUPC placed to facilitate induction. Continue PCN
[2018-09-08] MEDS ORDERED: Lidocaine 1% 50 ML MDV ONE (12:03)
[2018-09-08] MEDS ORDERED: Misoprostol 200 MCG Tab ONE (12:23)
--- NOTE | 2018-09-08 12:38 | PCM.DEL ---
L & D Note - General Info Date of Service: 09/08/18 - Delivery Note Labor: Induced by ARM, Induced by Oxytocin Cervical Ripening Method: Balloon Device Delivery Outcome: Livebirth Infant Delivery Method: Spontaneous Vaginal Delivery-Single Infant Delivery Mode: Spontaneous Presentation: Right Occiput Anterior (DONALD) Nuchal Cord: None Anesthesia Type: Epidural Amniotic Fluid Description: Clear Episiotomy Type: Right Mediolateral Laceration: None Suture type: Vicryl Suture size: 2-0 Placenta: Intact, Spontaneous Cord: 3 Vessels Estimated Blood Loss: 200 Resuscitation Needed: Yes [place]: Bulb Syringe, Stimulated, Warmed, [place] Used, Warmer Used Delivery Comments (Free Text/Narrative):: Patient found to be complete and began pushing. With pushing effort had an extended period and a lot of discomfort. Patient offered and accepted episiotomy. This was right mediolateral. Shortly afterwards head delivered from DONALD presentation. No nuchal cord present. With gentle downward traction the shoulders and body delivered. placed on maternal abdomen. Cord clamped and cut. Cord blood obtained. Placenta allowed time to separate and expelled intact. Uterine tone slightly boggy. Patient given 600 mcg of buccal cytotec with good relief. Inspection of perineum showed no extension of episiotomy site. Area repaired with a 2-0 vicryl in the typical fashion - General Info Date of Service: 09/08/18 - Patient Data Vitals - Most Recent: Last Vital Signs Temp 36.6 C 09/07/18 12:10 Pulse 85 09/07/18 13:10 Resp 20 09/07/18 13:10 BP 128/87 09/07/18 13:10 Pulse Ox 99 09/07/18 13:10 Weight - Most Recent: 87.634 kg Lab Results Last 24 Hours: Laboratory Results - last 24 hr 09/07/18 09/07/18 09/07/18 Range/Units 12:32 12:32 12:32 WBC 10.45 H (3.98-10.04) K/mm3 RBC 4.44 (3.98-5.22) M/mm3 Hgb 12.3 (11.2-15.7) gm/L Hct 37.7 (34.1-44.9) % MCV 84.9 D (79.4-94.8) fl MCH 27.7 (25.6-32.2) pg MCHC 32.6 (32.2-35.5) g/dl RDW Std Deviation 43.1 (36.4-46.3) fL Plt Count 124 L D (182-369) K/mm3 MPV 12.9 H (9.4-12.3) fl Neut % (Auto) 70.9 (34.0-71.1) % Lymph % (Auto) 19.3 (19.3-51.7) % [place] % (Auto) 8.5 (4.7-12.5) % Eos % (Auto) 0.8 (0.7-5.8) Baso % (Auto) 0.2 (0.1-1.2) % Neut # (Auto) 7.41 H (1.56-6.13) K/mm3 Lymph # (Auto) 2.02 (1.18-3.74) K/mm3 [place] # (Auto) 0.89 H (0.24-0.36) K/mm3 Eos # (Auto) 0.08 (0.04-0.36) K/mm3 Baso # (Auto) 0.02 (0.01-0.08) K/mm3 RPR Non-reactive (NONREACTIVE) Blood Type O POSITIVE Gel Antibody Screen Negative Med Orders - Current: Current Medications Diphenhydramine HCl (Benadryl) 25 mg IVPUSH Q6H PRN PRN Reason: pruritis Ephedrine Sulfate (Ephedrine Sulfate) 5 mg IVPUSH ASDIRECTED PRN PRN Reason: Hypotension Fentanyl (Sublimaze) 100 mcg EPIDUR Q3H PRN PRN Reason: Pain Last Admin: 09/08/18 04:42 Dose: 100 mcg Fentanyl/Bupivacaine HCl (Eaghhpxk-Uhgkj-Sw 2 Mcg/Ml-0.125%) 100 ml EPIDUR ONETIME PRN PRN Reason: Pain Last Admin: 09/08/18 04:42 Dose: 100 ml Lactated Ringer's (Ringers, Lactated) 1,000 mls @ 100 mls/hr IV ASDIRECTED RANJIT Last Admin: 09/08/18 04:49 Dose: 100 mls/hr Oxytocin/Lactated Ringer's (Pitocin In Lr 10 Units/1,000 Ml) 10 unit in 1,000 mls @ 500 mls/hr IV .CONTINUOUS RANJIT Penicillin G Potassium 2.5 (millunits/ Sodium Chloride) 100 mls @ 200 mls/hr IV Q4H RANJIT Last Admin: 09/08/18 08:37 Dose: 200 mls/hr Oxytocin/Lactated Ringer's (Pitocin In Lr 10 Units/1,000 Ml) 10 unit in 1,000 mls @ 12 mls/hr IV TITRATE RANJIT; Protocol Last Titration: 09/08/18 11:17 Dose: 18 munits/min, 108 mls/hr Nalbuphine HCl (Nubain) 10 mg IVPUSH Q2H PRN PRN Reason: pain Last Admin: 09/08/18 03:27 Dose: 10 mg Ondansetron HCl (Zofran) 4 mg IVPUSH Q4H PRN PRN Reason: Nausea/Vomiting Sodium Chloride (Saline Flush) 10 ml FLUSH ASDIRECTED PRN PRN Reason: Keep Vein Open Discontinued Medications Penicillin G Potassium 5 (millunits/ Sodium Chloride) 100 mls @ 100 mls/hr IV ONETIME RANJIT Stop: 09/07/18 14:30 Last Admin: 09/07/18 12:44 Dose: 100 mls/hr Lidocaine HCl (Xylocaine 1%) 50 ml INJECT ASDIRECTED ONE Stop: 09/07/18 18:01 Lidocaine HCl (Xylocaine 1%) Confirm Administered Dose 50 ml .ROUTE .STK-MED ONE Stop: 09/08/18 12:04 Misoprostol (Cytotec) Confirm Administered Dose 600 mcg .ROUTE .STK-MED ONE Stop: 09/08/18 12:24 - Problem List & Annotations (1) Postmaturity , 40-42 weeks gestation SNOMED Code(s): 64782017, 005079099 Code(s): O48.0 - POST-TERM Status: Acute Current Visit: Yes (2) GBS carrier SNOMED Code(s): 1874689862009 Code(s): Z22.330 - CARRIER OF GROUP B STREPTOCOCCUS Status: Acute Current Visit: Yes (3) History of SNOMED Code(s): 831140494 Code(s): Z98.891 - HISTORY OF UTERINE SCAR FROM PREVIOUS SURGERY Status: Acute Current Visit: Yes (4) , delivered, current hospitalization SNOMED Code(s): 390087519 Code(s): O34.219 - MATERNAL CARE FOR UNSP TYPE SCAR FROM PREVIOUS DEL Status: Acute Current Visit: Yes - Problem List Review Problem List Initiated/Reviewed/Updated: Yes - My Orders Last 24 Hours: My Active Orders 09/07/18 11:55 Nalbuphine [Nubain] 10 mg IVPUSH Q2H PRN Ondansetron [Zofran] 4 mg IVPUSH Q4H PRN Sodium Chloride 0.9% [Saline Flush] 10 ml FLUSH ASDIRECTED PRN Resuscitation Status Routine 09/07/18 11:56 Patient Status [ADT] Routine Activity as Tolerated [RC] PFP Communication Order [RC] ASDIRECTED Non Stress Test [RC] PER UNIT ROUTINE Notify Provider [RC] PFP Notify Provider [RC] PRN Vital Signs [RC] PER UNIT ROUTINE Electronic Heart Tones Ext w TOCO [WOMSER] Routine Electronic Heart Tones Internal [WOMSER] Per Unit Routine Peripheral IV Insertion Adult [OM.PC] Routine 09/07/18 11:57 Heart Tones [RC] ASDIRECTED Peripheral IV Care [RC] . DIRECTED 09/07/18 12:00 Lactated Ringers [Ringers, Lactated] 1,000 ml IV ASDIRECTED Oxytocin/Lactated Ringers [Pitocin in LR 10 Units/1,000 ML] 10 unit in 1,000 ml IV .CONTINUOUS 09/07/18 12:15 Oxytocin/Lactated Ringers [Pitocin in LR 10 Units/1,000 ML] 10 unit in 1,000 ml IV TITRATE 09/07/18 16:30 Penicillin G Potassium [Pfizerpen] 2.5 millunits Sodium Chloride 0.9% [Normal Saline] 100 ml IV Q4H 09/08/18 12:35 Patient Status Manage Transfer [TRANSFER] Routine - Assessment Assessment:: 23 y/o G2 now P2002 PPD#0 from at 40 2/7 wks - Plan Plan:: * Routine cares * Encourage breast feeding * Discharge home in 1-2 days
[2018-09-08] MEDS ORDERED: Witch Hazel Medicated Pads 40/Jar TOP PRN (14:57)
[2018-09-08] MEDS ORDERED: Benzocaine/Menthol 20%-0.5% Spray 56 GM Canister TOP PRN (14:57)
[2018-09-08] MEDS ORDERED: Docusate Sodium 100 MG Cap PO PRN (14:57)
[2018-09-08] MEDS ORDERED: Lanolin 100% Cream 7 GM Tube TOP PRN (14:57)
[2018-09-08] MEDS ORDERED: Acetaminophen 325 MG Tab PO PRN (14:57)
[2018-09-08] MEDS ORDERED: Misoprostol 200 MCG Tab PO ONE (14:58)
[2018-09-08] MEDS: Ibuprofen 600 MG Tab PO PRN (21:38)
[2018-09-09] MEDS ORDERED: Measles, Mumps & Rubella Vaccine 0.5 ML SDV SUBCUT ONE (03:30)
[2018-09-09] MEDS: Ibuprofen 600 MG Tab PO PRN (04:08)
--- NOTE | 2018-09-09 07:14 | PCM.PNPP ---
- General Info Date of Service: 09/09/18 Functional Status: Reports: Pain Controlled, Tolerating Diet, Ambulating, Urinating - Review of Systems General: Reports: No Symptoms Pulmonary: Reports: No Symptoms Cardiovascular: Reports: No Symptoms Gastrointestinal: Reports: No Symptoms Genitourinary: Reports: No Symptoms Musculoskeletal: Reports: No Symptoms Neurological: Reports: No Symptoms - Patient Data Vital Signs - Most Recent: Last Vital Signs Temp 36.8 C 09/09/18 04:03 Pulse 51 L 09/09/18 04:03 Resp 16 09/09/18 04:03 BP 129/58 L 09/09/18 04:03 Pulse Ox 99 09/09/18 04:03 Weight - Most Recent: 87.634 kg I&O - Last 24 Hours: Intake & Output 09/08/18 09/09/18 09/09/18 22:59 06:59 14:59 Intake Total 7600 Balance 7600 Med Orders - Current: Current Medications Acetaminophen (Tylenol) 650 mg PO Q4H PRN PRN Reason: mild pain or fever Benzocaine/Menthol (Dermoplast Pain Relief [place]) 0 gm TOP ASDIRECTED PRN PRN Reason: Perineal Comfort Measure Last Admin: 09/08/18 15:17 Dose: 1 can Docusate Sodium (Colace) 100 mg PO BID PRN PRN Reason: Constipation Last Admin: 09/08/18 21:54 Dose: 100 mg Emollient Ointment (Lansinoh Hpa) 0 gm TOP ASDIRECTED PRN PRN Reason: Sore Nipples Ibuprofen (Motrin) 600 mg PO Q6H PRN PRN Reason: Mild pain or fever Last Admin: 09/09/18 04:08 Dose: 600 mg Witch Magda (Tucks) 1 pad TOP ASDIRECTED PRN PRN Reason: perineal pain Last Admin: 09/08/18 15:17 Dose: 1 tub Discontinued Medications Diphenhydramine HCl (Benadryl) 25 mg IVPUSH Q6H PRN PRN Reason: pruritis Ephedrine Sulfate (Ephedrine Sulfate) 5 mg IVPUSH ASDIRECTED PRN PRN Reason: Hypotension Fentanyl (Sublimaze) 100 mcg EPIDUR Q3H PRN PRN Reason: Pain Last Admin: 09/08/18 04:42 Dose: 100 mcg Fentanyl/Bupivacaine HCl (Fcqauqbx-Xsqop-Km 2 Mcg/Ml-0.125%) 100 ml EPIDUR ONETIME PRN PRN Reason: Pain Last Admin: 09/08/18 04:42 Dose: 100 ml Lactated Ringer's (Ringers, Lactated) 1,000 mls @ 100 mls/hr IV ASDIRECTED RANJIT Last Admin: 09/08/18 04:49 Dose: 100 mls/hr Oxytocin/Lactated Ringer's (Pitocin In Lr 10 Units/1,000 Ml) 10 unit in 1,000 mls @ 500 mls/hr IV .CONTINUOUS RANJIT Penicillin G Potassium 5 (millunits/ Sodium Chloride) 100 mls @ 100 mls/hr IV ONETIME RANJIT Stop: 09/07/18 14:30 Last Admin: 09/07/18 12:44 Dose: 100 mls/hr Penicillin G Potassium 2.5 (millunits/ Sodium Chloride) 100 mls @ 200 mls/hr IV Q4H RANJIT Last Admin: 09/08/18 08:37 Dose: 200 mls/hr Oxytocin/Lactated Ringer's (Pitocin In Lr 10 Units/1,000 Ml) 10 unit in 1,000 mls @ 12 mls/hr IV TITRATE RANJIT; Protocol Last Titration: 09/08/18 12:20 Dose: 500 mls/hr Lidocaine HCl (Xylocaine 1%) 50 ml INJECT ASDIRECTED ONE Stop: 09/07/18 18:01 Last Admin: 09/08/18 12:11 Dose: 50 ml Lidocaine HCl (Xylocaine 1%) Confirm Administered Dose 50 ml .ROUTE .STK-MED ONE Stop: 09/08/18 12:04 Last Admin: 09/08/18 14:56 Dose: Not Given Measles/Mumps/Rubella Vaccine Live (M-M-R Ii Vaccine) 0.5 ml SUBCUT .ONCE ONE Stop: 09/09/18 03:31 Last Admin: 09/09/18 04:05 Dose: 0.5 ml Misoprostol (Cytotec) Confirm Administered Dose 600 mcg .ROUTE .STK-MED ONE Stop: 09/08/18 12:24 Last Admin: 09/09/18 01:24 Dose: Not Given Misoprostol (Cytotec) 600 mcg PO ONETIME ONE Stop: 09/08/18 14:59 Last Admin: 09/08/18 12:25 Dose: 600 mcg Nalbuphine HCl (Nubain) 10 mg IVPUSH Q2H PRN PRN Reason: pain Last Admin: 09/08/18 03:27 Dose: 10 mg Ondansetron HCl (Zofran) 4 mg IVPUSH Q4H PRN PRN Reason: Nausea/Vomiting Sodium Chloride (Saline Flush) 10 ml FLUSH ASDIRECTED PRN PRN Reason: Keep Vein Open - Interaction Infant Disposition, : in Room with Family Interaction: Holding Infant Infant Feeding: Breastfed ; Nursed Well Support Person: Significant Other - Recovery Exam Fundal Tone: Firm Fundal Level: 1 Fingerbreadths Below Umbilicus Fundal Placement: Midline Lochia Amount: Small Lochia Color: Rubra/Red Perineum Description: Other (see below) Other Perinuem Description: episiotomy Episiotomy/Laceration: Approximated Bladder Status: Voiding Urinary Elimination: Voided - Exam General: Alert, Oriented, Cooperative GI/Abdominal Exam: Soft, Non-Tender Extremities: Normal Inspection Skin: Warm, Dry, Intact - Problem List & Annotations (1) Postmaturity , 40-42 weeks gestation SNOMED Code(s): 92774676, 876965188 Code(s): O48.0 - POST-TERM Status: Acute Current Visit: Yes (2) GBS carrier SNOMED Code(s): 5835084994229 Code(s): Z22.330 - CARRIER OF GROUP B STREPTOCOCCUS Status: Acute Current Visit: Yes (3) History of SNOMED Code(s): 275731319 Code(s): Z98.891 - HISTORY OF UTERINE SCAR FROM PREVIOUS SURGERY Status: Acute Current Visit: Yes (4) , delivered, current hospitalization SNOMED Code(s): 252643060 Code(s): O34.219 - MATERNAL CARE FOR UNSP TYPE SCAR FROM PREVIOUS DEL Status: Acute Current Visit: Yes - Problem List Review Problem List Initiated/Reviewed/Updated: Yes - My Orders Last 24 Hours: My Active Orders 09/08/18 14:57 Activity as Tolerated [RC] PER UNIT ROUTINE Vital Signs [RC] 09,15,21,03 Acetaminophen [Tylenol] 650 mg PO Q4H PRN Benzocaine/Menthol [Dermoplast Pain Relief [place]] See Dose Instructions TOP ASDIRECTED PRN Docusate Sodium [Colace] 100 mg PO BID PRN Ibuprofen [Motrin] 600 mg PO Q6H PRN Lanolin [Lansinoh HPA] See Dose Instructions TOP ASDIRECTED PRN Witch Magda [Tucks] 1 pad TOP ASDIRECTED PRN Assess Lochia [WOMSER] Per Unit Routine Assess Uterine Involution [WOMSER] Per Unit Routine Breast Pump [WOMSER] Per Unit Routine Heat Therapy [OM.PC] PRN Ice Therapy [OM.PC] Per Unit Routine Perineal Care [OM.PC] Per Unit Routine Peripheral IV Discontinue [OM.PC] Routine Sitz Bath [OM.PC] Per Unit Routine 09/08/18 23:33 Vaccines to be Administered [RC] PER UNIT ROUTINE 09/08/18 Lunch Regular Diet [DIET] 09/09/18 14:57 Heat Therapy [OM.PC] PRN - Assessment Assessment:: 23 y/o G2 now P2002 PPD#1 from at 40 2/7 wks - Plan Plan:: * Routine cares * Encourage breast feeding * Discharge home today
--- NOTE | 2018-09-09 07:20 | PCM.DCSUM1 ---
Discharge Summary - Discharge Data Discharge Date: 09/09/18 Discharge Disposition: Home, Self-Care 01 Condition: Good - Discharge Diagnosis/Problem(s) (1) Postmaturity , 40-42 weeks gestation SNOMED Code(s): 01634975, 042252904 ICD Code: O48.0 - POST-TERM Status: Acute Current Visit: Yes (2) GBS carrier SNOMED Code(s): 7852022028820 ICD Code: Z22.330 - CARRIER OF GROUP B STREPTOCOCCUS Status: Acute Current Visit: Yes (3) History of SNOMED Code(s): 625969048 ICD Code: Z98.891 - HISTORY OF UTERINE SCAR FROM PREVIOUS SURGERY Status: Acute Current Visit: Yes (4) , delivered, current hospitalization SNOMED Code(s): 234749846 ICD Code: O34.219 - MATERNAL CARE FOR UNSP TYPE SCAR FROM PREVIOUS DEL Status: Acute Current Visit: Yes - Patient Summary/Data Complications: None Consults: None Recommended Follow-up Testing/Procedures: Follow up in 3 weeks for check Hospital Course: 23 y/o admitted at 40 1/7 wks for elective IOL / TOLAC. Induction done with silverio bulb and pitocin augmentation to start. Eventually underwent AROM. She progressed nicely to complete dilation and underwent an uncomplicated . See delivery note for full details. she did well and was discharged home on PPD#1 - Patient Instructions Diet: Regular Diet as Tolerated Activity: As Tolerated Activity, Other: Pelvic Rest for 6 weeks Driving: May Drive Today Showering/Bathing: May Shower Showering/Bathing, Other: May Bathe Wound/Incision Care: Keep Operative Site/Wound Site Clean and Dry Notify Provider of: Fever, Increased Pain, Swelling and Redness, Drainage, Nausea and/or Vomiting - Discharge Plan *PRESCRIPTION DRUG MONITORING PROGRAM REVIEWED*: Not Applicable *COPY OF PRESCRIPTION DRUG MONITORING REPORT IN PATIENT UZIEL: Not Applicable Home Medications: Home Meds PNV95/Ferrous Fumarate/FA [ Tablet] 1 tab PO DAILY 09/07/18 [History] Docusate Sodium [Colace] 100 mg PO BID PRN cap 09/08/18 [Rx] Ibuprofen [Motrin] 600 mg PO Q6H PRN tablet 09/08/18 [Rx] Patient Handouts: Home Care Instructions for Mom Referrals: Flavia Pop MD [Primary Care Provider] - (3 weeks for check ) - Discharge Summary/Plan Comment DC Time >30 min.: No - Patient Data Vitals - Most Recent: Last Vital Signs Temp 36.8 C 09/09/18 04:03 Pulse 51 L 09/09/18 04:03 Resp 16 09/09/18 04:03 BP 129/58 L 09/09/18 04:03 Pulse Ox 99 09/09/18 04:03 Weight - Most Recent: 87.634 kg I&O - Last 24 hours: Intake & Output 09/08/18 09/09/18 09/09/18 22:59 06:59 14:59 Intake Total 7600 Balance 7600 Med Orders - Current: Current Medications Acetaminophen (Tylenol) 650 mg PO Q4H PRN PRN Reason: mild pain or fever Benzocaine/Menthol (Dermoplast Pain Relief [place]) 0 gm TOP ASDIRECTED PRN PRN Reason: Perineal Comfort Measure Last Admin: 09/08/18 15:17 Dose: 1 can Docusate Sodium (Colace) 100 mg PO BID PRN PRN Reason: Constipation Last Admin: 09/08/18 21:54 Dose: 100 mg Emollient Ointment (Lansinoh Hpa) 0 gm TOP ASDIRECTED PRN PRN Reason: Sore Nipples Ibuprofen (Motrin) 600 mg PO Q6H PRN PRN Reason: Mild pain or fever Last Admin: 09/09/18 04:08 Dose: 600 mg Witch Magda (Tucks) 1 pad TOP ASDIRECTED PRN PRN Reason: perineal pain Last Admin: 09/08/18 15:17 Dose: 1 tub Discontinued Medications Diphenhydramine HCl (Benadryl) 25 mg IVPUSH Q6H PRN PRN Reason: pruritis Ephedrine Sulfate (Ephedrine Sulfate) 5 mg IVPUSH ASDIRECTED PRN PRN Reason: Hypotension Fentanyl (Sublimaze) 100 mcg EPIDUR Q3H PRN PRN Reason: Pain Last Admin: 09/08/18 04:42 Dose: 100 mcg Fentanyl/Bupivacaine HCl (Lknwfxpk-[place]-Du 2 Mcg/Ml-0.125%) 100 ml EPIDUR ONETIME PRN PRN Reason: Pain Last Admin: 09/08/18 04:42 Dose: 100 ml Lactated Ringer's (Ringers, Lactated) 1,000 mls @ 100 mls/hr IV ASDIRECTED RANJIT Last Admin: 09/08/18 04:49 Dose: 100 mls/hr Oxytocin/Lactated Ringer's (Pitocin In Lr 10 Units/1,000 Ml) 10 unit in 1,000 mls @ 500 mls/hr IV .CONTINUOUS RANJIT Penicillin G Potassium 5 (millunits/ Sodium Chloride) 100 mls @ 100 mls/hr IV ONETIME RANJIT Stop: 09/07/18 14:30 Last Admin: 09/07/18 12:44 Dose: 100 mls/hr Penicillin G Potassium 2.5 (millunits/ Sodium Chloride) 100 mls @ 200 mls/hr IV Q4H RANJIT Last Admin: 09/08/18 08:37 Dose: 200 mls/hr Oxytocin/Lactated Ringer's (Pitocin In Lr 10 Units/1,000 Ml) 10 unit in 1,000 mls @ 12 mls/hr IV TITRATE RANJIT; Protocol Last Titration: 09/08/18 12:20 Dose: 500 mls/hr Lidocaine HCl (Xylocaine 1%) 50 ml INJECT ASDIRECTED ONE Stop: 09/07/18 18:01 Last Admin: 09/08/18 12:11 Dose: 50 ml Lidocaine HCl (Xylocaine 1%) Confirm Administered Dose 50 ml .ROUTE .STK-MED ONE Stop: 09/08/18 12:04 Last Admin: 09/08/18 14:56 Dose: Not Given Measles/Mumps/Rubella Vaccine Live (M-M-R Ii Vaccine) 0.5 ml SUBCUT .ONCE ONE Stop: 09/09/18 03:31 Last Admin: 09/09/18 04:05 Dose: 0.5 ml Misoprostol (Cytotec) Confirm Administered Dose 600 mcg .ROUTE .STK-MED ONE Stop: 09/08/18 12:24 Last Admin: 09/09/18 01:24 Dose: Not Given Misoprostol (Cytotec) 600 mcg PO ONETIME ONE Stop: 09/08/18 14:59 Last Admin: 09/08/18 12:25 Dose: 600 mcg Nalbuphine HCl (Nubain) 10 mg IVPUSH Q2H PRN PRN Reason: pain Last Admin: 09/08/18 03:27 Dose: 10 mg Ondansetron HCl (Zofran) 4 mg IVPUSH Q4H PRN PRN Reason: Nausea/Vomiting Sodium Chloride (Saline Flush) 10 ml FLUSH ASDIRECTED PRN PRN Reason: Keep Vein Open
--- NOTE | 2018-09-09 08:41 | PCM48HPAN ---
Post Anesthesia Note - EVALUATION WITHIN 48HRS OF ANESTHETIC Vital Signs in Normal Range: Yes Patient Participated in Evaluation: Yes Respiratory Function Stable: Yes Airway Patent: Yes Cardiovascular Function Stable: Yes Hydration Status Stable: Yes Pain Control Satisfactory: Yes Nausea and Vomiting Control Satisfactory: Yes Mental Status Recovered: Yes
== END 2018-09-09 13:00 | disposition home or self-care (01) | DRG 807 ==
LOC: JD.OB 12:05 → OBSVTOIN 09-08 12:17 → JD.OB 09-08 12:18
PROVIDERS: ADMIT Obstetrics & Gynecology; ATTEND Obstetrics & Gynecology
PROC: 10E0XZZ Delivery of Products of Conception, External Approach (ICD-10-PCS; principal; 2018-09-08)
PROC: 10907ZC Drainage of Amniotic Fluid, Therapeutic from Products of Conception, Via Natural or Artificial Opening (ICD-10-PCS; 2018-09-08)
PROC: 3E033VJ Introduction of Other Hormone into Peripheral Vein, Percutaneous Approach (ICD-10-PCS; 2018-09-08)
PROC: 0W8NXZZ Division of Female Perineum, External Approach (ICD-10-PCS; 2018-09-08)
PROC: 10H07YZ Insertion of Other Device into Products of Conception, Via Natural or Artificial Opening (ICD-10-PCS; 2018-09-08)
PROC: 4A1HXCZ Monitoring of Products of Conception, Cardiac Rate, External Approach (ICD-10-PCS; 2018-09-08)
DX: O48.0 Post-term pregnancy (principal); Z37.0 Single live birth; O99.824 Streptococcus B carrier state complicating childbirth; Z3A.40 40 weeks gestation of pregnancy; O76 Abnormality in fetal heart rate and rhythm complicating labor and delivery; Z23 Encounter for immunization
CPT/HCPCS: 01967; 36415; 51702; 59025; 59409; 85025; 86592; 86850; 86900; 86901; 90471; 90707; A9270-GY; J2001; J2300; J2540; J2590; J3010; J3490; J7030; J7120

== ENCOUNTER 2020-08-01 13:46 | Emergency (ER) | payer MEDICAID ==
--- NOTE | 2020-08-01 14:13 | EDM.PDOC ---
ED HPI GENERAL MEDICAL PROBLEM - General Chief Complaint: Upper Extremity Injury/Pain Stated Complaint: LT WRIST INJURY Time Seen by Provider: 08/01/20 13:58 Source of Information: Reports: Patient, RN Notes Reviewed History Limitations: Reports: No Limitations - History of Present Illness INITIAL COMMENTS - FREE TEXT/NARRATIVE: Patient is a 25-year-old female who presents to the ER for the evaluation of her left wrist injury. Patient notes she was at volleyball last night, and she did not have any sort of fall or anything, but during the game she noticed that her left wrist became severely painful while playing. She notes that she has been using a wrist brace this morning, and that seems to be helping when she mobilizes her wrist. She notes that she has little range of motion in her wrist, eversion and inversion at the wrist joint seems to provide her the most pain. She still has all range of motion of her fingers. She denies any numbness or tingling distal to the injury, she denies any pain in her elbow. She took ibuprofen this morning at around 7:30 AM, that seems to help a little bit when she does take it. She denies any chance of , she states she has the Depo shot for control. Patient denies any other sick-like symptoms, fever/chills, cough/shortness of breath, nausea/vomiting/diarrhea. Patient is predominantly right-handed. 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: Musculoskeletal History: Reports: None Psychiatric History: Reports: None Oncologic (Cancer) History: Reports: None - Past Surgical History Female Surgical History: Reports: Breast Implant (bilateral), Section - History Comment History Comment: vits for home meds Social & Family History - Family History Family Medical History: No Pertinent Family History - Caffeine Use Caffeine Use: Reports: Soda - Living Situation & Occupation Living situation: Reports: (getting ), with Family (1 child) 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 ED EXAM, GENERAL - Physical Exam Exam: See Below Exam Limited By: No Limitations General Appearance: Alert, WD/WN, No Apparent Distress Respiratory/Chest: No Respiratory Distress, Lungs Clear, Normal Breath Sounds, No Accessory Muscle Use, Chest Non-Tender Cardiovascular: Normal Peripheral Pulses, Regular Rate, Rhythm, No Edema Peripheral Pulses: 2+: Radial (L), Radial (R) Neurological: Alert, Oriented, Normal Cognition, No Motor/Sensory Deficits Psychiatric: Normal Affect, Normal Mood Skin Exam: Warm, Dry, Intact, No Rash, Ecchymosis (slight over the radial aspect of the patient's lateral wrist) Course - Orders/Labs/Meds Orders: Active Orders 24 hr Category Date Time Status Wrist Comp Min 3V Lt [CR] Stat Exams 08/01/20 14:04 Ordered - Re-Assessments/Exams Free Text/Narrative Re-Assessment/Exam: 08/01/20 14:14 Presents to the ER for her left wrist injury, we will get x-rays of the area, for further evaluation. 08/01/20 14:18 X-rays have been reviewed by myself and Dr. Neal, no acute fractures made apparent. Official radiology read is still pending. Will likely get the patient home with her wrist brace that accompanied her to the ER, with general conservative measures. Departure - Departure Time of Disposition: 14:18 Disposition: Home, Self-Care 01 Condition: Good Clinical Impression: Unspecified sprain of left wrist, initial encounter - Discharge Information *PRESCRIPTION DRUG MONITORING PROGRAM REVIEWED*: No *COPY OF PRESCRIPTION DRUG MONITORING REPORT IN PATIENT UZIEL: No Instructions: Wrist Sprain, Adult Referrals: Alicia Mann PA-C [Primary Care Provider] - Forms: ED Department Discharge Additional Instructions: You have been evaluated in the ED for your left wrist injury. Your x-ray demonstrated no acute fractures or other bony abnormalities. Please use ice as tolerated to the affected area. Please try to elevate the affected area to relieve swelling. You may continue to utilize the wrist brace that you have been previously using, for immobilization of the wrist if this seems to help provide more pain relief. You may take Tylenol 500 mg or ibuprofen 600mg q6 hrs for pain relief. Please do so until you have a tolerable level of pain with activity. Do not exceed 4000mg Tylenol or 3200mg ibuprofen in a 24 hour time period. Please return to ED if your symptoms should change or worsen. - My Orders Last 24 Hours: My Active Orders 08/01/20 14:04 Wrist Comp Min 3V Lt [CR] Stat - Assessment/Plan Last 24 Hours: My Active Orders 08/01/20 14:04 Wrist Comp Min 3V Lt [CR] Stat
--- NOTE | 2020-08-01 14:56 | CR ---
Left wrist: 4 views of the left wrist were obtained. Comparison: No previous wrist is available. Joint spaces are preserved. No acute fracture, dislocation or other bony abnormality is appreciated. Impression: 1. No abnormality is appreciated on left wrist exam. Diagnostic code #1
== END 2020-08-01 14:40 | disposition home or self-care (01) ==
LOC: JD.ED 13:46
DX: S63.502A Unspecified sprain of left wrist, initial encounter (principal); X58.XXXA Exposure to other specified factors, initial encounter; Y93.68 Activity, volleyball (beach) (court)
CPT/HCPCS: 73110-26-LT; 73110-LT; 99282; 99283-25